=== PATIENT | female | born 1990 | race African-American/Black ===

== ENCOUNTER 2019-11-09 21:52 | Emergency (ER) | payer OTHER ==
[2019-11-09 22:04] VITALS: BP 123/67; PULSE 61; TEMP 98.5; BMI 29.2
[2019-11-09] MEDS ORDERED: KETOROLAC TROMETHAMINE 30 MG/1 ML VIAL IM ONE (22:17)
[2019-11-09] MEDS ORDERED: diazePAM 5 MG TABLET PO ONE (22:17)
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
== END 2019-11-09 23:12 | disposition home or self-care (01) ==
LOC: JER 21:52
PROC: 3E0233Z Introduction of Anti-inflammatory into Muscle, Percutaneous Approach (ICD-10-PCS; principal; 2019-11-09)
DX: M54.12 Radiculopathy, cervical region (principal)
CPT/HCPCS: 72040-TC; 73030-TC-RT-FY; 99284-25